=== PATIENT | male | born 1975 | race Caucasian/White ===

== ENCOUNTER 2021-12-01 18:50 | Emergency (ER) | payer OTHER ==
[~2021-12-01] VITALS: Ht 167.6 cm; Wt 63.5 kg
== END 2021-12-01 19:27 | disposition home or self-care (01) ==
LOC: ED 18:50
DX: F41.9 Anxiety disorder, unspecified (principal)

== ENCOUNTER 2021-12-01 22:39 | Emergency (ER) | payer OTHER ==
[~2021-12-01] VITALS: Ht 172.7 cm; Wt 72.6 kg
== END 2021-12-01 22:48 | disposition left against medical advice (07) ==
LOC: ED 22:39
DX: R07.9 Chest pain, unspecified (principal); F17.200 Nicotine dependence, unspecified, uncomplicated